=== PATIENT | male | born 1945 | race Caucasian/White ===

== ENCOUNTER 2016-11-15 05:00 | Inpatient (IN) | payer MEDICARE, OTHER ==
--- NOTE | 2016-11-12 12:51 | HP ---
PATIENT: VJ BUSTAMANTE MEDICAL RECORD: [id number] ACCOUNT: [id number] LOCATION:[facility] : 49 ADMISSION DATE: 11/15/16 HISTORY AND PHYSICAL EXAMINATION VJ Lucio (71yo, M) ID# [id number]. Date/Time11/10/2016 11:47ADWAN55/18/194[facility] Dept.NPP_[facility] ClinicProviderEDMAEVE DUCKWORTH MDInsuranceMed Primary: [employer] [employer] - MEDICARE-RAILROAD [employer] BOARD (MEDICARE) Insurance # : [id number] Employer Name : RETIRED Med Secondary: FOR LIFE ( - MEDICARE SUPPLEMENT) Insurance # : [id number] Employer Name : RETIRED Prescription: ESI1 - Member is eligible. 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 11/10/2016 11:09 amBMI:25 11/10/2016 11:08 amAllergies Reviewed Allergies CHANTIXMedications Reviewed Medications acetaminophen 300 mg-codeine 30 mg tpdcuv48/10/17 filledMEDCOAspir-81 81 MG DAILY11/03/16 enteredSarah Jonesbutorphanol tartrate 10 mg/mL nasal spray10/17/16 filledMEDCOcetirizine 10 mg /17/17 filledMEDCOdoxazosin 4 mg /10/17 filledMEDCOfluticasone 50 mcg/actuation nasal spray,atzamaivug43/05/17 filledMEDCOmetoprolol succinate ER 100 mg tablet,extended release 24 hr10/24/16 filledMEDCOpantoprazole 40 mg tablet,delayed sedokus42/05/17 filledMEDCOsimvastatin 80 mg ihbjtq50/17/17 filledMEDCOSuprep Bowel Prep Kit 17.5 gram-3.13 gram-1.6 gram oral wrjbdkub00/14/17 filledMEDCOToprol XL 50 mg tablet,extended wzbhinr18/05/17 filledMEDCOProblems Reviewed Problems Aneurysm of right iliac artery - Onset: 11/02/2016 Family History Reviewed Family History Father- Cerebrovascular accidentMother- Cerebrovascular accidentSocial History Reviewed Social History Cardiology Family history of heart disease?: Y Smoking Status: Current every day smoker Smoker (1 PPD) High blood pressure: Y Alcohol intake: None HISTORY AND PHYSICAL [id number] VJ BUSTAMANTE Surgical History Reviewed Surgical History Other - Left ankle Other - PTCA/stent Other - Hernia repair Past Medical History Reviewed Past Medical History Aneurysmn (specify): Y - right iliac artery High Blood Pressure: Y Hyperlipidemia: Y Documents for Discussion N/A Screening None recorded. HPI Peripheral Vascular Disease Reported by patient. Location: right groin and thigh Quality: aching Severity: interferes with normal activity; moderate Duration: started 4weeks ago; lasts hours Onset/Timing: intermittent; daily Context: during walking Alleviating Factors: rest Aggravating Factors: walking Associated Symptoms: no weakness; no numbness; no paresthesias; no skin discoloration; no fever abdominal aortic aneurysm and right iliac artery aneurysm ROS Patient reports fever but reports no night sweats, no significant weight gain, no significant weight loss, and no exercise intolerance; currently has a upper respiratory tract infection. He reports cough but reports no wheezing, no shortness of breath, and no coughing up blood; URI. He reports no dry eyes, no irritation, and no vision change. He reports no dif ficulty hearing and no ear pain. He reports no frequent nosebleeds and no nose/sinus problems. He reports no sore throat, no bleeding gums, no snoring, no dry mouth, no mouth ulcers, no oral abnormalities, and no teeth problems. He reports no jugular vein distension and no swollen glands. He reports no chest pain, no arm pain on exertion, no shortness of breath when walking, no shortness of breath when lying down, no palpitations, and no known heart murmur. He reports no abdominal pain, no vomiting, normal appetite, no diarrhea, not vomiting blood, no nausea, and no constipation. He reports no incontinence, no difficulty urinating, no hematuria, and no increased frequency. He reports no muscle aches, no muscle weakness, no arthralgias/joint pain, no back pa i n, and no swelling in the extremities. He reports no abnormal mole, no jaundice, and no rashes. He reports no loss of consciousness, no weakness, no numbness, no seizures, no dizziness, and no headaches. He reports no depression, no sleep disturbances, fe eling safe in relationship, and no alcohol abuse. He reports no fatigue. He reports no swollen glands and no bruising. He reports no runny nose, no sinus pressure, no itching, no hives, and no frequent sneezing. ROS as noted in the HPI Physical Exam Patient is a 71-year-old male. Constitutional: General Appearance well nourished and developed and HISTORY AND PHYSICAL [id number] DIANNAVJ healthy-appearing. Level of Distress NAD. Ambulation ambulating normally. Cardiovascular: Apical Impulse not displaced or no thrill. Heart Auscultation normal s1 and s2; no murmurs, rubs, or gallops; and RRR. Arterial Pulses no abdominal aorta bruits, femoral bruits, or popliteal bruits and 2+ bilateral, carotid 2+ bilateral, femoral 2+ bilateral, popliteal 2+ bilateral, and dorsalis pedis diminished (right). Edema no edema or varicosities. Lungs: Repiratory Effort no dyspnea. Percussion no dullness or flatness and hyperresonance . Auscultation no wheezing, rhonchi, or rales / crackles and breathing sounds normal, good air movement, and CTA except as noted. Abdomen: Bowl Sounds normal. Inspection and Palpation no tenderness, guarding, or rebound tenderness and soft, non-distended, and mass (pulsatile abdominal aortic aneurysm nontender). Liver non-tender and no hepatomegaly. Spleen non-tender and no splenomegaly. Hernia none palpable. Musculoskeletal System: Gait And Stance normal gait and stance. Digits and Nails normal nails and no cyanosis. Neurologic: Cranial Nerves grossly intact. Reflexes DTRs 2+ bilaterally throughout. Sensation grossly intact. Lymph Nodes: Lymph Nodes no cervical LAD, supraclavicular LAD, axillary LAD, or inguinal LAD. Eyes: Lids and Conjunctivae no discharge or pallor and non-injected. Pupils PERRLA. Cornea grossly intact. EOM EOMI. Lens clear. Sclerae non-icteric. Neck: Neck no masses, enlarged lymph nodes, or carotid bruits and supple and trachea midline. Thyroid no enlargement or nodules and non-tender. Skin: Inspection and Palpation no rash, lesions, ulcers, jaundice, or abnormal nevi. Assessment / Plan abdominal and right iliac artery aneurysm 1. Aneurysm of right iliac artery I72.3: Aneurysm of iliac artery Discussion Notes I have discussed his disease process with him in detail as well as the alternative methods of treatment. We discussed endovascular and open repair of his abdominal aortic aneurysm and iliac aneurysm including the expected benefits and risk. The risk of the operation include bleeding, infection, stroke,loss of limb, and .He and his understand all of the above and he wishes to proceed with claudia collado surgery. Return to Office Derek Duckworth MD for Surgery at [facility]_SURGERY SCHEDULE on 11/15/2016 at 07:30 AM to see Derek Duckworth MD at [facility] on or around 11/17/2016 HISTORY AND PHYSICAL [id number] VJ BUSTAMANTE EDWARD MD at 1251 CC: [id number] DICTATION DATE: 11/10/16 1100 ASSEMBLER SEAT: BHASKAR 11/10/16 150[id number] [place] [address]
[2016-11-14 09:51] LABS: BASOPHILS 0.5 % (0.0-2.0); HEMATOCRIT 38.1 % (42.0-54.0); HEMOGLOBIN 12.2 g/dL (13.5-17.5); IMMATURE GRANULOCYTES 0.2 % (0-5); LYMPHOCYTES 24.5 % (15-50); MCH 28.5 pg (26.0-34.0); MEAN PLATELET VOLUME 9.9 fL (7.4-10.4); MONOCYTES 7.2 % (2-11); NEUTROPHILS 63.6 % (40-80); PLATELET COUNT 144 10x3/uL (130-400); RBC 4.28 10x6/uL (4.20-6.10); RDW 15.7 % (11.5-14.5); WBC 5.5 10x3/uL (4.8-10.8)
[2016-11-14 10:17] LABS: ALBUMIN 4.1 g/dL (3.4-5.0); ALKALINE PHOSPHATASE 90 U/L (46-116); ALT (SGPT) 18 U/L (10-68); BILIRUBIN - TOTAL 0.38 mg/dL (0.2-1.3); CALC OSMOLALITY 279 mosm/kg (275-300); CALCIUM 8.7 mg/dL (8.5-10.1); CHLORIDE - SERUM 104 mmol/L (98-107); CREATININE - SERUM 0.7 mg/dL (0.6-1.3); GLUCOSE 104 mg/dL (74-106); POTASSIUM - SERUM 4.5 mmol/L (3.5-5.1); PROTEIN - SERUM 7.4 g/dL (6.4-8.2); SODIUM 140 mmol/L (136-145); UREA NITROGEN 14 mg/dL (7-18); eGFR NON AFRICAN AMERICAN > 90 mL/min (90-120)
[2016-11-14 10:18] LABS: APPEARANCE CLEAR (CLEAR); BILIRUBIN NEGATIVE (NEGATIVE); COLOR YELLOW (YELLOW); GLUCOSE NEGATIVE (NEGATIVE); KETONE NEGATIVE (NEGATIVE); LEUKOCYTE ESTERASE NEGATIVE (NEGATIVE); NITRITE NEGATIVE (NEGATIVE); PROTEIN NEGATIVE (NEGATIVE); SPECIFIC GRAVITY 1.005 (1.005-1.020); UROBILINOGEN NORMAL (NORMAL)
[2016-11-14 10:26] LABS: APTT 28.9 SECONDS (22.8-39.4); INR 0.97 (0.85-1.17); PROTIME 12.7 SECONDS (11.6-15.0)
[~2016-11-15] VITALS: Ht 177.8 cm; Wt 80.1 kg
[2016-11-15] VITALS (48 sets, daily range): BP systolic 111–164; BP diastolic 43–73; BMI 25.0
[~2016-11-15 05:00] MED LIST: ASPIRIN EC81 M1 PO; CARDURA4 MG PO; CENTRUM COMPLE1 EACH PO; COMBIVENT RESPIM4 GM INH; FISH OIL 1,0001 CA1 PO; FLUTICASONE PRO16 GM NASAL; ICAPS AREDS1 TAB.SA PO; PROTONIX40 MG PO; STADOL NASAL S2.5 ML NASAL; TOPROL XL100 MG PO; TYLENOL W/CODEI1 TAB PO; ZOCOR80 MG PO; ZYRTEC10 MG PO
--- NOTE | 2016-11-15 13:25 | NUR ---
REVIEWING LAB, FOUND PT POTASSIUM AT 3.1 THIS AM. ASKED WHITNEY YIP IF NEEDED TO BE REPLACED. WAS NOT TREATED IN O.R. ACCORDING TO O.R. STAFF. WHITNEY WILL ORDER NEW LAB TO SEE WHERE LEVELS ARE.
--- NOTE | 2016-11-15 14:35 | NUR ---
SPOKE WITH DR DUCKWORTH REGARDING PT POTASSIUM LEVEL COMING BACK 3.2. ASKED FOR 40MEQ TO BE GIVEN OVER 3 HOURS.
--- NOTE | 2016-11-15 17:30 | NUR ---
PULSES PALPABLE BILATERALLY IN DORSALS PEDIS AND POSTERIOR TIBIAL. PEDAL PULSES MARKED IN GREEN WHERE PALPABLE.
--- NOTE | 2016-11-15 17:43 | NUR ---
PT HEADACHE BACK. ICE PACK PROVIDED. STADOL SPRAY GIVEN. PT BP RISES WITH INCREASED PAIN. NITRO RUNNING AT 26 ML/HR (1.24MCG/KG/MIN). PT REPOSITIONED FOR COMFORT.
--- NOTE | 2016-11-15 17:58 | NUR ---
PT SBP CONTINUED TO CLIMB TO 170'S. INCREASED NITRO PER DIRECTIONS. MAXED AT 30 CHANGED TO CLEVIPREX. SPB NOW 140'S
--- NOTE | 2016-11-15 19:30 | NUR ---
REPORT REC'D AND CARE ASSUMED, REC'D PT AWAKE, ALERT, ORIENTED X 4, O2 @ 2 LITERS VIA NC, LIGHTS OFF IN ROOM FOR PT COMFORT, PT RESTLESS IN BED STATES " I HAVE A MIGRAINE CABRAL IT JUST WON'T QUIT", OFFERED PT ICE PACK, STATES "IT IS TO HEAVY", COLD WASHCLOTH PROVIDED, LDLSCL DRSG CDI WITH PLASMALYTE @ 100C/HR ZINACEF @ 11.4CC/HR, AND CLEVIPREX @ 36CC/HR, CM-SR @ 84, LEFT RADIAL DAVID WITH FLEXION BOARD IN USE, LINE LEVELED AND ZEROED WITH RETURN OF APPROPRIATE WAVEFORM, BILAT GROIN DRSGS CDI, NO BLEEDING OR HEMATOMA, BILAT PEDAL PULSES PALPABLE, HEELS BRIDGED, SR UP X 2, CALL LIGHT IN REACH.
--- NOTE | 2016-11-15 19:36 | NUR ---
HAVE BEEN TITRATING TO GET BP DOWN. HAVE HAD TROUBLE GETTING TO UNDER SBP OF 150. GAVE TORADOL FOR HEADACHE. TORADOL IN CONJUNCTION WITH STADOL FOR HEADACHE PAIN, PLUS CLEVIPREX ADJUSTMENT HAVE NOW BEEN ABLE TO GET SBP UNDER 140. PT CLEVIPREX CURRENTLY RUNNING AT 34ML/HR (17MG/HR). BP 136/54.
--- NOTE | 2016-11-15 20:35 | NUR ---
STADOL NASAL SPRAY PROVIDED FOR COMPLAINTS OF HEADACHE RATING "8" ON 0-10 PAIN SCALE, COOL CLOTH PROVIDED, PT DENIES FURTHER NEEDS.
--- NOTE | 2016-11-15 20:45 | NUR ---
EVENING MEDS GIVEN ORDERED.
--- NOTE | 2016-11-15 21:15 | NUR ---
BROTHER AT BROUGHT PT'S DENTURES, PLACED ON BS TABLE IN WHITE DENTURE CUP, PT DENIES NEEDS AT THIS TIME, REPORTS HEADACHE SOMEWHAT BETTER.
--- NOTE | 2016-11-15 23:15 | NUR ---
REASSESSMENT COMPLETED, PT STATES " MY HEAD IS STILL HURTING BAD", DISCUSSED PAIN MEDICATION OPTIONS WITH PT, IMITREX GIVEN PO AT THIS TIME, TITRATING CLEVIPREX TOLERATED, BILAT GROIN DRSGS REMAIN CDI NO BLEEDING OR HEMATOMA, PT REPOSITIONED OFF OF BACK TO LEFT SIDE SUPPORTED WITH PILLOWS.
--- NOTE | 2016-11-15 23:40 | NUR ---
LIGHT FROM HALLWAY BOTHERING PT'S EYES, PT REPOSITIONED ONTO RIGHT SIDE SUPPORTED WITH PILLOWS, BP STABLE, WILL CONT TO MONITOR FOR CHANGES.
[2016-11-16] VITALS (62 sets, daily range): BP systolic 107–160; BP diastolic 45–94; Ht 177.8 cm; Wt 80.1 kg
--- NOTE | 2016-11-16 01:00 | NUR ---
PT RESTING IN BED EYES CLOSED, NO DISTRESS NOTED, VSS, ATTEMPTING TO WEAN CLEVIPREX TOLERATED.
--- NOTE | 2016-11-16 02:20 | NUR ---
PT AWAKE REQUESTING PAIN MEDICATION FOR HEADACHE, REPORTS IMITREX DID HELP BUT LIKE STADOL AT THIS TIME, STADOL PROVIDED ON REQUEST, PT ASSISTED UP AND ONTO RIGHT SIDE PER REQUEST.
--- NOTE | 2016-11-16 03:50 | NUR ---
RADIOLOGY AT BS FOR AM CXR
--- NOTE | 2016-11-16 04:06 | NUR ---
PT COMPLAINING OF MIGRAINE HEADACHE, IMITREX GIVEN PO AT THIS TIME, PT REPOSITIONED UP IN BED AND ONTO SIDE SUPPORTED WITH PILLOWS, BILAT FEET REMAIN WARM TO TOUCH, PULSES PALPABLE.
--- NOTE | 2016-11-16 06:00 | NUR ---
AT BS, UPDATE GIVEN AND QUESTIONS ANSWERED, CONTINUING TO TITRATE CLEVIPREX FOR BP
[2016-11-16 06:11] LABS: HEMATOCRIT 30.9 % (42.0-54.0); MCH 28.2 pg (26.0-34.0); MCHC 32.4 g/dL (31.0-37.0); MEAN PLATELET VOLUME 9.7 fL (7.4-10.4); RBC 3.55 10x6/uL (4.20-6.10); RDW 15.9 % (11.5-14.5); WBC 6.1 10x3/uL (4.8-10.8)
[2016-11-16 06:26] LABS: CALC OSMOLALITY 282 mosm/kg (275-300); CALCIUM 7.5 mg/dL (8.5-10.1); CARBON DIOXIDE 26.7 mmol/L (21.0-32.0); CHLORIDE - SERUM 106 mmol/L (98-107); CREATININE - SERUM 0.7 mg/dL (0.6-1.3); GLUCOSE 118 mg/dL (74-106); POTASSIUM - SERUM 3.6 mmol/L (3.5-5.1); SODIUM 142 mmol/L (136-145); UREA NITROGEN 11 mg/dL (7-18); eGFR NON AFRICAN AMERICAN > 90 mL/min (90-120)
--- NOTE | 2016-11-16 07:45 | NUR ---
SHIFT ASSESSMENT COMPLETE. PT REPOSITIONED IN BED FOR BREAKFAST.
--- NOTE | 2016-11-16 08:30 | NUR ---
MORNING MEDICATIONS PROVIDED. PT C/O HEADACHE. STADOL GIVEN.
--- NOTE | 2016-11-16 09:00 | NUR ---
NO VISITORS FOR 9AM VISITATION
--- NOTE | 2016-11-16 11:25 | NUR ---
PT GIVEN STADOL AND IMITREX FOR HEADACHE. HAS BEEN UP IN CHAIR FOR PAST HOUR AFTER LEFT RADIAL ART LINE REMOVED (TIP INTACT) AND CALDERON CATHETER REMOVED (TIP INTACT). PT HAS URINATED ON HIS OWN SINCE CALDERON REMOVAL.
--- NOTE | 2016-11-16 12:02 | NUR ---
PT SITTING UP IN CHAIR AT BEDSIDE FOR LUNCH.
--- NOTE | 2016-11-16 12:58 | NUR ---
PT UP WALKING WITH PHYSICAL THERAPY
--- NOTE | 2016-11-16 14:15 | NUR ---
PT HAD URINARY ACCIDENT. PARTIAL BATH. ALL NEW LINENS.
--- NOTE | 2016-11-16 14:49 | NUR ---
PT SLEEPING AT THIS TIME NO DISTRESS NOTED. HAS COLD CLOTH ON HEAD FOR HEADACHE
--- NOTE | 2016-11-16 15:00 | NUR ---
FAMILY AT BEDSIDE FOR 3PM VISITATION. PT NOW AWAKE. C/O HEADACHE. WAS ASLEEP EARLIER WHEN I COULD GIVE HIM HIS MEDICATION.
--- NOTE | 2016-11-16 16:55 | NUR ---
PT SITTING UP TO SIDE OF BED FOR DINNER.
--- NOTE | 2016-11-16 16:59 | OP ---
PATIENT NAME: VJ BUSTAMANTE MEDICAL RECORD: [id number] :47 LOCATION:[facility] ADMISSION DATE:11/15/16 SURGEON: JACOB DUCKWORTH MD DATE OF OPERATION: 11/15/2016 SURGEON: Jacob Duckworth MD. ANESTHESIA: General endotracheal, Dr. Pappas. OPERATION PERFORMED: Endovascular stent repair of abdominal aortic aneurysm and large right common iliac artery aneurysm as well as embolization of the right hypogastric artery. FINDINGS OF THE OPERATION: 1. Open femoral and external iliac artery exposure bilaterally, 84861--90. 2. Catheter sheath placement into the aorta, nonselective bilaterally, 70147--45. 3. Endo AAA repair with modular bifurcated device, 1 docking limb 90-day total, Global ____. 4. Rad S&I Endo AAA repair, 76838--65. 5. Arterial embolization of right hypogastric artery, 30315. 6. Rad S&I Endo iliac artery embolization, 13090-96. PREOPERATIVE DIAGNOSIS: Large abdominal aortic and right common iliac artery aneurysm. POSTOPERATIVE DIAGNOSIS. Large abdominal aortic and right common iliac artery aneurysm. INDICATION FOR OPERATION: Large iliac and the aortic aneurysm. FINDINGS OF THE OPERATION: 1. Fluoro time was 20 minutes 42 seconds. Contrast 190 mL. 2. Aortogram demonstrated the large abdominal aortic aneurysm and large right common iliac artery aneurysm. 3. 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 4. Post-procedure aortogram demonstrates good flow. No type 1 endoleaks proximally or distally with good flow through the graft. ESTIMATED BLOOD LOSS: Less than 150 mL. DESCRIPTION OF PROCEDURE: After informed consent, adequate preoperative medication evaluation, the patient was brought to the operating room, placed on the table in the supine position. After induction of general endotracheal anesthesia and application of appropriate monitoring devices, the chest, neck, abdomen and both groin were prepped and draped in a sterile field, utilizing Betadine scrub, alcohol, and Betadine solution. A Betadine-impregnated drape was also used. Oblique incisions were made above the inguinal ligaments bilaterally and dissection carried down the fascia. The inguinal ligaments were elevated. The common femoral and distal external iliac arteries were surrounded proximally and distally as well as the branches and encircled with vessel loops. The patient was given a calculated dose of heparin. Bilateral micropuncture techniques were made and 4-Kyrgyz sheath placed and exchanged for a 9-Kyrgyz OPERATIVE REPORT [id number] VJ BUSTAMANTE sheaths under fluoroscopic examination. Utilizing a Glidewire and a steerable catheter the bifurcation was defined and a Glidewire was placed into the external iliac artery. A straight Glidewire was then placed in the distal aneurysm sac. The 2 branches of the hypogastric were identified and wires were placed. An exchange made for the catheter and a 0.18 catheter was placed into the upper branch of the hypogastric and cords were used to totally closed the vessel. The catheter was then manipulated into the more inferior branch and to ____, helix course were placed with a good result. An aortogram was then performed and measurements made. The ipsilateral limb was left, an exchange for a stiff guidewire was performed on the left and the main body placed at the renal arteries. The main body was then deployed as well as the upper fixation. The contralateral limb was then cannulated from the right and exchange was made for a stiff wire. After measurements were made the contralateral limb was placed distal to the embolization of the hypogastric. Reliant balloons were used to inflate the main body and limbs and aortogram was performed demonstrated a good result with seals superiorly and inferiorly. The catheters, wires and sheaths were removed and the femoral arteries repaired with 2 layers of running 6-0 Prolene suture. All maneuvers to remove trapped air were performed. The arteries were secured. The clamps removed with excellent flow through both femoral arteries. The patient then given a calculated dose of protamine to reverse the heparin. Hemostasis was achieved. The wounds were irrigated with copious amounts of antibiotic solution and normal saline. There was no active bleeding. Instrument count and sponge counts were correct times 2. Wounds closed in layers utilizing 2-0 Vicryl on deep subcutaneous tissue, 3-0 Vicryl on superficial subcutaneous tissue and 5-0 subcuticular Monocryl on the skin. Sterile dressings were applied. The patient tolerated the procedure well and was transferred to the ICU in satisfactory condition. TRANSINT:[id number] Voice Confirmation ID: [id number] DOCUMENT ID: [id number] JACOB DUCKWORTH MD at 1659 CC: [id number] DICTATION DATE: 11/15/16 1145 SWEAT BAND SEPARATOR: 11/15/162009 ADM IN [facility] [address] [id number]
--- NOTE | 2016-11-16 18:36 | NUR ---
PT STILL COMPLAINING OF HEADACHE AND BEING "HOT". TEMPERATURE CHECKED. 99.7 ORAL. GIVEN ICE PACK PATIENT DAUGHTER REQUESTED. ALONG WITH IMITREX, GAVE TYLENOL 3 SINCE NOT QUITE TIME FOR STADOL.
--- NOTE | 2016-11-16 19:30 | NUR ---
REPORT RECVD. CARE ASSUMED. INITIAL ASSMNT COMPLETED. SEE FLOWSHEET FOR ALL FINDINGS. RESTING IN DIM ROOM WITH EYES CLOSED. RESP UNLABORED. LUNGS CTA, DIM IN BASES. SPO2 99% ON O2 AT 2 LPM NC. BRADYCARDIC ON THE MONITOR. NSR. PULSES PALP. TEDS/SCDS ON. AFEBRILE. ABD SOFT, BSA X4. BILATERAL GROIN INCISIONAL DRESSINGS CDI. REPORTS CONSTANT HEADACHE. 4/10 AT THE MOMENT. VOIDING TO URINAL. REPOSITIONS SELF. HOB UP. C/L IN REACH. CONT CURRENT POC.
--- NOTE | 2016-11-16 21:30 | NUR ---
HS MEDS GIVEN. PRN STADOL AND TORADOL PROVIDED GOT HEADACHE. VSS. REPOSITIONED SELF FOR COMFORT. HOB UP. C/L IN REACH. CONT CURRENT POC.
--- NOTE | 2016-11-16 23:30 | NUR ---
REASSESSMENT COMPLETED. SEE FLOWSHEET FOR ALL FINDINGS. RESTING WITH EYES CLOSED. RESP UNLABORED. LUNGS CTA, DIM IN BASES. SPO2 99% ON O2 AT 2 LPM NC. BRADYCARDIC ON THE MONITOR. NSR. PULSES PALP. TEDS/SCDS ON. AFEBRILE. ABD SOFT, BSA X4. BILATERAL GROIN INCISIONAL DRESSINGS CDI. REPORTS CONSTANT HEADACHE. / AT THIS TIME. VOIDING TO URINAL. REPOSITIONS SELF. HOB UP. C/L IN REACH. CONT CURRENT POC.
[2016-11-17] VITALS (9 sets, daily range): BP systolic 92–156; BP diastolic 47–66
--- NOTE | 2016-11-17 01:10 | NUR ---
RESTING WITH EYES CLOSED. NO C/O OR NEEDS VOICED. VSS. HOB UP. C/L IN REACH. CONT TO MONITOR.
--- NOTE | 2016-11-17 05:15 | NUR ---
REQUESTED PRN STADOL FOR CONSTANT HEADACHE. REPORTS RESTING BETTER TONIGHT. VSS. HOB UP. C/L IN REACH. CONT CURRENT POC.
--- NOTE | 2016-11-17 09:16 | NUR ---
AT BEDSIDE FOR 9AM VISITATION. PHYSICAL THERAPIST SYED IN ROOM TO WALK PATIENT. ATE 100% OF BREAKFAST THIS MORNING AND DRANK ALL OF HIS ORANGE JUICE. I LET PATIENT KNOW WE WOULD BE MORE AGGRESSIVE WITH HIS PHYSICAL THERAPY/WALKING TODAY.
--- NOTE | 2016-11-17 09:22 | NUR ---
PT WALKED 300FT WITH PHYSICAL THERAPIST. NO DISTRESS NOTED. MORE ALERT AND RECEPTIVE TO ACTIVITY. SATS AT 99% ON 2L AFTER WALKING AND DOING INCENTIVE SPIROMETRY. (1250 X10). PLACED ON ROOM AIR. SATS 95-97%. PT AND EDUCATED ON BEING UP IN CHAIR INSTEAD OF BEING IN BED. PT IS IN CHAIR AT THIS TIME.
--- NOTE | 2016-11-17 10:42 | NUR ---
Is the patient Alert and Oriented? Yes 0 * How many steps to enter\exit or inside your home? 5 0 * PCP DR. LECHUGA 0 * Pharmacy [facility] 0 * Preadmission Environment Home with Family 0 * ADLs Independent 0 * Equipment None 0 * List name and contact numbers for known caregivers / representatives who currently or will assist patient after discharge: SPOUSE: MATEUSZ [phone] 0 * Community resources currently utilized None 0 * Additional services required to return to the preadmission environment? No 0 * Can the patient safely return to the preadmission environment? Yes 0 * Has this patient been hospitalized within the prior 30 days at any hospital? No PATIENT IS AWAKE AND ALERT. HE STATES HE WAS INDEPENDENT IN ALL ADL'S PRIOR TO COMING TO THE HOSPITAL. HE LIVES AT HOME WITH HIS , MATEUSZ. SHE WILL BE AVAILABLE TO DRIVE HIM HOME AT DISCHARGE. PATIENT'S PCP IS DR. LECHUGA. HE GETS HIS MEDS FROM [facility]. HE DENIES USE OF ANY DME AND DENIES EVER HAVING HOME HEALTH. PATIENT STATES THERE ARE 5 STEPS TO ENTER HIS HOME. NO DISCHARGE NEEDS AT THIS TIME IDENTIFIED.
--- NOTE | 2016-11-17 13:02 | NUR ---
CENTRAL LINE REMOVED, TIP INTACT. DISCHARGE TEACHING PROVIDED TO . REFUSED TO PARTICIPATE. SHE IS ANGRY ABOUT BEING REQUIRED TO FOLLOW VISITATION POLICY DURING THE HOSPITAL STAY. SHE IS BEING VERY RUDE. AFTER TEACHING WAS COMPLETED I ASKED THE PATIENT IF HE WANTED ME TO HELP HIM GET DRESSED OR IF HE WOULD LIKE HIS TO HELP. HE DECLINED MY HELP SAYING HE WOULD DO IT. I WAS WALKING AWAY FROM THE PATIENT, THE YELLED OUT AT ME "AREN'T YOU GOING TO GET HIM DRESSED!?" I TOLD HER HE REFUSED MY HELP SAYING HE COULD DO IT. TOLD THEM I WOULD GIVE HIM TIME TO GET DRESSED AND WILL GET A WHEELCHAIR.
--- NOTE | 2016-11-17 13:26 | NUR ---
PT ESCORTED TO VEHICLE VIA WHEELCHAIR. PRIOR TO LEAVING ROOM (AFTER HAD LEFT TO GET CAR) PATIENT APOLOGIZED FOR BEHAVIOR AND JOKINGLY SAID HE WOULD RATHER STAY HERE. LET HIM KNOW IT WAS A PLEASURE TO TAKE CARE OF HIM AND WISHED HIM CONTINUED RECOVERY.
== END 2016-11-17 13:29 | disposition home or self-care (01) | DRG 269 ==
LOC: D.SDCHOLD 05:00 → D.CVICU 05:00 → D.SDCHOLD 07:30 → D.CVICU 11:24
PROVIDERS: ADMIT Internal Medicine Cardiovascular Disease
PROC: 04VC3DZ Restriction of Right Common Iliac Artery with Intraluminal Device, Percutaneous Approach (ICD-10-PCS; 2016-11-15)
PROC: B41D1ZZ Fluoroscopy of Aorta and Bilateral Lower Extremity Arteries using Low Osmolar Contrast (ICD-10-PCS; 2016-11-15)
PROC: 04V03DZ Restriction of Abdominal Aorta with Intraluminal Device, Percutaneous Approach (ICD-10-PCS; principal; 2016-11-15 07:30)
DX: I71.4 Abdominal aortic aneurysm, without rupture (principal); I70.92 Chronic total occlusion of artery of the extremities; I72.3 Aneurysm of iliac artery; I10 Essential (primary) hypertension; E78.5 Hyperlipidemia, unspecified; G43.909 Migraine, unspecified, not intractable, without status migrainosus; F17.200 Nicotine dependence, unspecified, uncomplicated

== ENCOUNTER 2016-12-16 12:18 | Emergency (ER) | payer MEDICARE, OTHER ==
[2016-11-16 09:48] VITALS: BMI 24.9
== END 2016-12-16 15:33 | disposition home or self-care (01) ==
LOC: D.ER 12:18
DX: R20.9 Unspecified disturbances of skin sensation (principal); J44.9 Chronic obstructive pulmonary disease, unspecified; I25.10 Atherosclerotic heart disease of native coronary artery without angina pectoris; E78.5 Hyperlipidemia, unspecified; K21.9 Gastro-esophageal reflux disease without esophagitis

== ENCOUNTER 2016-12-19 17:27 | Inpatient (IN) | payer MEDICARE, OTHER ==
[~2016-12-19] VITALS: Ht 177.8 cm; Wt 70.9 kg
--- NOTE | 2016-12-19 17:15 | NUR ---
RECEIVED PATINT TO ROOM 2217 AWAKE AND ALERT ACCOMPANIED BY EMS. HEPARIN GTT INFUSING AT 10CC NH HOUR. INITIATED BY [facility]. HE IS ORIENTED AND WITHOUT DISTRESS. HIS RIGHT LOWER LEG IS COOL TO THE TOUCH TO JUST BELOW THE KNEE. THE CAPILLARY BEDS TO THE R TOES DO NOT EMILIANO. I CANNOT FEEL PEDAL PULSE ON THE RIGHT OR LEFT FOOT. LEFT FOOT IS COOL TO TOUCH UP TO THE MID CALF. DR. DUCKWORTH ON THE UNIT TO ASSESS PATIENT. VSS. LUNGS CLEAR IN ALL LOBES. HR IS BRADYCARDIC, AUSCULTATION DISTANT. HE RATES HIS PAIN AN 8 IN THEAT RIGHT LEG.
[2016-12-19 17:32] VITALS: BP 171/77; BMI 23.2
[2016-12-19 18:03] LABS: HEMATOCRIT 33.4 % (42.0-54.0); HEMOGLOBIN 10.6 g/dL (13.5-17.5); MCH 27.4 pg (26.0-34.0); MCHC 31.7 g/dL (31.0-37.0); MCV 86.3 fL (80.0-100.0); MEAN PLATELET VOLUME 9.9 fL (7.4-10.4); RBC 3.87 10x6/uL (4.20-6.10); RDW 15.2 % (11.5-14.5); WBC 6.5 10x3/uL (4.8-10.8)
[2016-12-19 18:15] LABS: INR 1.07 (0.85-1.17); PROTIME 13.8 SECONDS (11.6-15.0)
--- NOTE | 2016-12-19 18:16 | NUR ---
PATIENT OFF THE UNIT FOR CHEST XRAY. HEPARIN GTT ACCOMPANIED HIM
[2016-12-19 18:28] LABS: APTT 192.4 SECONDS (22.8-39.4)
--- NOTE | 2016-12-19 18:36 | NUR ---
HEPARIN PLACED ON DELAY FOR 60 MINUTES. HE KNOWS THAT WE NEEDS A URINE SAMPLE, COLLECTION CUP GIVEN.
[2016-12-19 18:38] LABS: ALKALINE PHOSPHATASE 126 U/L (46-116); BILIRUBIN - TOTAL 0.22 mg/dL (0.2-1.3); CALC OSMOLALITY 277 mosm/kg (275-300); CALCIUM 8.7 mg/dL (8.5-10.1); CARBON DIOXIDE 34.6 mmol/L (21.0-32.0); CHLORIDE - SERUM 99 mmol/L (98-107); CREATININE - SERUM 0.7 mg/dL (0.6-1.3); GLUCOSE 95 mg/dL (74-106); POTASSIUM - SERUM 3.9 mmol/L (3.5-5.1); PROTEIN - SERUM 6.7 g/dL (6.4-8.2); SODIUM 140 mmol/L (136-145); UREA NITROGEN 9 mg/dL (7-18); eGFR NON AFRICAN AMERICAN > 90 mL/min (90-120)
[2016-12-19 18:40] LABS: ALT (SGPT) 6 U/L (10-68)
[2016-12-19 20:00] VITALS: BP 151/76
--- NOTE | 2016-12-19 20:00 | NUR ---
ASSESSMENT PER FLOWSHEET. IV PATENT LEFT HAND RESUMED HEPARIN GTT AT 7CC'S/HR PER S/S. SITE CLEAR. ALERT/ORIENTED X3. BOTH LOWER EXTREMITIES COOK TO TOUCH RT>THAN LT. COLR PALE FAINT PULSES NOTED.
--- NOTE | 2016-12-19 20:33 | NUR ---
C/O PAIN IN LOWER EXTREMITES. RATES PAIN LEVEL 6-7. STADOL NASAL SPRAY USED FOR PAIN CONTROL.
--- NOTE | 2016-12-19 21:45 | NUR ---
MEDS GIVEN PER OCT. SR UP X2 CALL LIGHT WITHIN REACH.
[2016-12-19 23:24] LABS: APPEARANCE CLEAR (CLEAR); BILIRUBIN NEGATIVE (NEGATIVE); COLOR YELLOW (YELLOW); GLUCOSE NEGATIVE (NEGATIVE); KETONE NEGATIVE (NEGATIVE); LEUKOCYTE ESTERASE NEGATIVE (NEGATIVE); NITRITE NEGATIVE (NEGATIVE); PROTEIN NEGATIVE (NEGATIVE); UROBILINOGEN NORMAL (NORMAL)
[2016-12-20] VITALS (52 sets, daily range): BP systolic 116–163; BP diastolic 44–88
--- NOTE | 2016-12-20 | NUR ---
RESTING QUIETLY DENIES NEEDS AT THIS TIME.
--- NOTE | 2016-12-20 01:15 | NUR ---
REST OF SURGICAL PERMITS SIGNED WITNESSED AND PLACED ON CHART. NOTIFIED SHAAN RN STRIP CUTTING MACHINE OPERATOR NEED FOR OLD CHART.
--- NOTE | 2016-12-20 01:16 | NUR ---
C/O PAIN IN LEGS AND FEET RATES PAIN LEVEL #8. STADOL NASAL SPRAY USED FOR PAIN CONTROL. BOTH GROIN AREA AND RT LEG SHAVED AND PREP COMPLETE BED BATH GIVEN PER MISSY MELÉNDEZA AND KEVIN STRANGE. WEIGHT AND HEIGHT DONE. PLACED RESULTS ONFFRONT OF CHART.
--- NOTE | 2016-12-20 03:45 | NUR ---
RESTING QUIETLY RESPIRATIONS WITH EASE AND UNLABORED.
--- NOTE | 2016-12-20 03:47 | NUR ---
RESTING QUIETLY AT THIS TIME REMAINS NPO FOR SURGERY.
--- NOTE | 2016-12-20 03:58 | NUR ---
VS TAKEN IN BOTH ARMS AND RECORDED ON FRONT OF CHART.AND IN GRAPHIC SHEET.
--- NOTE | 2016-12-20 04:00 | NUR ---
HEPARIN GTT TURNED OFF ORDERED PER DR. DUCKWORTH. PT VOIDED IN URINAL. PT READY FOR SURGERY.
--- NOTE | 2016-12-20 05:30 | NUR ---
DR. DUCKWORTH'S CARBONATING STONE CLEANER HERE MARKED PULSES WITH DOPPLER. NITRO OINTMENT APPLIED TO BOTH RADIAL ARTERIES.
--- NOTE | 2016-12-20 05:50 | NUR ---
DR. AGUILAR ANESTHESIST TO EVALUATE PATIENT. OK TO PRE OP PATIENT NOTIFIED SHAAN YIP BROOM BUILDER.
--- NOTE | 2016-12-20 06:15 | NUR ---
TO SURGERY PER CART PREOP MEDS GIVEN IV OF NS AT [facility] UNABLE TO DO PREOP CHECKLIST COMPUTER STATES CASE NUMBER NOT ON FILE.NOTIFIED ELBA IN SURGERY.
--- NOTE | 2016-12-20 07:10 | NUR ---
REPORT RECEIVED FROM FINISHER OPERATOR NURSE.
--- NOTE | 2016-12-20 07:20 | NUR ---
IN SURGERY AT THIS TIME. WILL MONITOR PT WHEN HE RETURNS TO THE ROOM.
--- NOTE | 2016-12-20 09:00 | NUR ---
STILL IN PROCEDURE AT THIS TIME.
--- NOTE | 2016-12-20 12:07 | NUR ---
FAMILY AT BEDSIDE, UPDATED BY DR DUCKWORTH.
[2016-12-20 12:14] LABS: HEMATOCRIT 31.4 % (42.0-54.0); HEMOGLOBIN 10.2 g/dL (13.5-17.5); MCH 27.7 pg (26.0-34.0); MCHC 32.5 g/dL (31.0-37.0); MCV 85.3 fL (80.0-100.0); MEAN PLATELET VOLUME 9.9 fL (7.4-10.4); RBC 3.68 10x6/uL (4.20-6.10); RDW 14.9 % (11.5-14.5); WBC 7.2 10x3/uL (4.8-10.8)
[2016-12-20 12:27] LABS: INR 1.12 (0.85-1.17); PROTIME 14.2 SECONDS (11.6-15.0)
[2016-12-20 12:31] LABS: APTT 70.1 SECONDS (22.8-39.4)
--- NOTE | 2016-12-20 15:00 | NUR ---
REASSESSMENT VIA FLOWSHEET, SEE FOR DETAILS.
--- NOTE | 2016-12-20 16:15 | NUR ---
PT STATES, "MY LEG IS MUCH BETTER." APPEARS VISIBLY MORE COMFORTABLE THAN PREVIOUS ASSESSMENTS.
[2016-12-20 17:24] LABS: HEMATOCRIT 30.4 % (42.0-54.0); HEMOGLOBIN 9.7 g/dL (13.5-17.5); MCH 27.1 pg (26.0-34.0); MCHC 31.9 g/dL (31.0-37.0); MCV 84.9 fL (80.0-100.0); MEAN PLATELET VOLUME 9.3 fL (7.4-10.4); RBC 3.58 10x6/uL (4.20-6.10); RDW 14.8 % (11.5-14.5)
[2016-12-20 17:29] LABS: PROTIME 16.9 SECONDS (11.6-15.0)
[2016-12-20 17:30] LABS: APTT 73.7 SECONDS (22.8-39.4)
[2016-12-20 17:43] LABS: INR 1.38 (0.85-1.17); WBC 14.2 10x3/uL (4.8-10.8)
--- NOTE | 2016-12-20 18:15 | NUR ---
SPOKE WITH DR DUCKWORTH VIA PHONE, PT STATUS REPORTED AND NEW ORDERS RECEIVED. TPA TO RUN AT 6ML/HR UNTIL 0300 THEN DECREASE TO 3ML/HR.
--- NOTE | 2016-12-20 19:20 | NUR ---
REC'D PT RESTING IN BED ON ROOM AIR, AWAKE, ALERT, ORIENTED X 4, LEFT RADIAL DAVID WITH FLEXION BOARD IN USE, LEVELED AND ZEROED WITH RETURN OF APPROPRIATE WAVEFORM, LDLSCL DRSG CDI WITH D51/2NS @ 100CC/HR, CLEVIPREX @ 13.5CC/HR, HEPARIN @ 700 UNITS/HR AND DEMEROL @ 10MG Q10MIN WITH 240MG Q4HR LOCKOUT, RIGHT GROIN SHEATH WITH NS WITH HEPARIN @ 20CC/HR AND TPA @ 6CC/HR, DRSG TO UPPER PUNCTURE SITE WITH SM AMOUNT OF BLEEDING, DRSG CDI, RIGHT LOWER LEG WARM TO TOUCH TO ANKLE, FOOT AND TOES COOL TO TOUCH, PULSE BY DOPPLER, LEFT LOWER EXT COOL TO TOUCH AND PULSES BY DOPPLER, CRITICORE CALDERON PATENT DRAINING CLEAR YELLOW URINE, RIGHT HEEL BRIDGED, PT DENIES NEEDS AT THIS TIME, SR UP X 2, BED IN LOW POSITION , CALL LIGHT IN REACH.
--- NOTE | 2016-12-20 19:30 | NUR ---
O2 SAT DECREASED TO 83% DURING CONVERSATION, O2 REAPPLIED @ 4LITERS
--- NOTE | 2016-12-20 21:00 | NUR ---
EVENING MEDS GIVEN, PT REPORTS PAIN NOT BAD STATES "IT HAS DULLED DOWN", REMINDED PT TO USE DEMEROL GRUBBER NEEDED, VERBALIZES UNDERSTANDING.
--- NOTE | 2016-12-20 21:15 | NUR ---
FAMILY AT VISITING WITH PATIENT
--- NOTE | 2016-12-20 23:00 | NUR ---
TIMED PTT DRAW OBTAINED FROM DAVID AND SENT TO LAB, REASSESSMENT COMPLETED, PT RESTLESS IN BED, DENIES PAIN A THIS TIME, CALL LIGHT IN REACH
[2016-12-20 23:39] LABS: HEMATOCRIT 28.6 % (42.0-54.0); HEMOGLOBIN 9.1 g/dL (13.5-17.5); MCH 27.1 pg (26.0-34.0); MCHC 31.8 g/dL (31.0-37.0); MCV 85.1 fL (80.0-100.0); MEAN PLATELET VOLUME 9.5 fL (7.4-10.4); RBC 3.36 10x6/uL (4.20-6.10); WBC 11.9 10x3/uL (4.8-10.8)
[2016-12-20 23:46] LABS: INR 1.23 (0.85-1.17); PROTIME 15.4 SECONDS (11.6-15.0)
[2016-12-20 23:47] LABS: APTT 50.1 SECONDS (22.8-39.4)
[2016-12-21] VITALS (61 sets, daily range): BP systolic 114–149; BP diastolic 39–61; Ht 177.8 cm; Wt 70.9 kg
--- NOTE | 2016-12-21 00:45 | NUR ---
PT REMAINS AWAKE, STATES " I USUALLY HAVE TO TAKE SOMETHING AT HOME TO HELP ME SLEEP, 0.5 MG ATIVAN GIVEN SLOW IVP, WEANING CLEVIPREX TOLERATED.
--- NOTE | 2016-12-21 01:30 | NUR ---
PT ATTEMPTING TO SIT UP, STATES " I WAS GONNA CALL AND SEE WHAT TIME THEY WANTED ME OVER THERE", PT ORIENTED TO PLACE, REORIENTED TO SITUATION, RIGHT GROIN SITE WITH HEMATOMA NOTED, GRADUALLY HAS EXPANDED DURING SHIFT, RIGHT LEG WARM TO TOP OF FOOT.
--- NOTE | 2016-12-21 03:30 | NUR ---
CHLORAHEXIDINE BATH PROVIDED, LDLSCL DRSG CHANGED CLOT NOTED AT INSERTION SITE, CLOT LEFT IN PLACE, SITE CLEANED WITH CHLORAPREP, BIOPATCH AND 4X4 APPLIED, RIGHT GROIN REMAINS EDEMATOUS, LEG WARM TO TOP OF FOOT, PP BY DOPPLER, PT REMAINS CONFUSED, REORIENTED AT THIS TIME, COMPLETED LINEN CHANGE PROVIDED, PT REPOSITONED UP IN BED FOR COMFORT, SR UP X 4, CALL LIGHT IN REACH, WILL MONITOR CLOSELY FOR CHANGES.
--- NOTE | 2016-12-21 04:00 | NUR ---
PT UNCOMFORTABLE IN BED, ASSISTED TO LOG ROLL ONTO LEFT SIDE SUPPORTED WITH PILLOW, VSS, TITRATING CLEVIPREX TOLERATED.
--- NOTE | 2016-12-21 05:30 | NUR ---
TIMED LAB DRAWN FROM DAVID AND SENT TO LAB, PT LEANING UP IN BED FOR PHONE WANTING TO CALL , REMINDED PT HE MUST STAY FLAT DUE TO SHEATH IN RIGHT GROIN, PHONE PLACED IN PT'S REACH.
[2016-12-21 05:35] LABS: HEMATOCRIT 26.6 % (42.0-54.0); HEMOGLOBIN 8.6 g/dL (13.5-17.5); MCH 27.2 pg (26.0-34.0); MCHC 32.3 g/dL (31.0-37.0); MCV 84.2 fL (80.0-100.0); MEAN PLATELET VOLUME 9.4 fL (7.4-10.4); RBC 3.16 10x6/uL (4.20-6.10); RDW 14.8 % (11.5-14.5)
[2016-12-21 05:40] LABS: WBC 8.5 10x3/uL (4.8-10.8)
[2016-12-21 05:57] LABS: INR 1.15 (0.85-1.17); PROTIME 14.6 SECONDS (11.6-15.0)
[2016-12-21 05:58] LABS: APTT 49.7 SECONDS (22.8-39.4)
--- NOTE | 2016-12-21 06:00 | NUR ---
AT , UPDATE GIVEN AND QUESTIONS ANSWERED.
--- NOTE | 2016-12-21 06:25 | NUR ---
HEPARIN GTT INCREASED TO 900 UNITS/HR
[2016-12-21 06:27] LABS: ALBUMIN 2.4 g/dL (3.4-5.0); ALKALINE PHOSPHATASE 107 U/L (46-116); BILIRUBIN - TOTAL 0.27 mg/dL (0.2-1.3); CALC OSMOLALITY 271 mosm/kg (275-300); CALCIUM 7.5 mg/dL (8.5-10.1); CARBON DIOXIDE 28.1 mmol/L (21.0-32.0); CHLORIDE - SERUM 101 mmol/L (98-107); GLUCOSE 135 mg/dL (74-106); PROTEIN - SERUM 5.8 g/dL (6.4-8.2); SODIUM 136 mmol/L (136-145); UREA NITROGEN 7 mg/dL (7-18)
[2016-12-21 06:31] LABS: ALT (SGPT) 17 U/L (10-68); CREATININE - SERUM 0.5 mg/dL (0.6-1.3); POTASSIUM - SERUM 3.1 mmol/L (3.5-5.1); eGFR NON AFRICAN AMERICAN > 90 mL/min (90-120)
--- NOTE | 2016-12-21 07:30 | NUR ---
SHIFT ASSESSMENT VIA FLOWSHEET, SEE FOR DETAILS.
--- NOTE | 2016-12-21 08:31 | NUR ---
DR DUCKWORTH HERE TO SEE PT.
--- NOTE | 2016-12-21 10:20 | NUR ---
PT REPOSITIONED. PT RESTLESS, REMINDED OF THE IMPORTANCE OF NOT PULLING LINES.
--- NOTE | 2016-12-21 11:20 | NUR ---
PREOP MEDS GIVEN PER ORDER.
[2016-12-21 11:43] LABS: HEMATOCRIT 24.3 % (42.0-54.0); HEMOGLOBIN 7.9 g/dL (13.5-17.5); MCH 27.4 pg (26.0-34.0); MCHC 32.5 g/dL (31.0-37.0); MCV 84.4 fL (80.0-100.0); MEAN PLATELET VOLUME 9.6 fL (7.4-10.4); RBC 2.88 10x6/uL (4.20-6.10); WBC 8.1 10x3/uL (4.8-10.8)
[2016-12-21 12:24] LABS: INR 1.14 (0.85-1.17); PROTIME 14.5 SECONDS (11.6-15.0)
--- NOTE | 2016-12-21 12:30 | NUR ---
PT OFF UNIT TO OR VIA BED.
--- NOTE | 2016-12-21 14:30 | NUR ---
PT REMAINS IN OR AT THIS TIME.
--- NOTE | 2016-12-21 15:15 | NUR ---
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 PATIENT STATED SHE WILL DRIVE PATIENT HOME AT DISCHARGE. THERE IS A RAMP TO ENTER HOME AND NO STAIRS ONCE INSIDE. PATIENT IS INDEPENDENT WITH HIS CARE AND HAS A WALKER AT HOME. PATIENTS PCP IS DR. LECHUGA AND USES [facility]. DOES NOT THINK PATIENT WILL NEED HOME HEALTH AT DISCHARGE. CM WILL CONTINUE TO FOLLOW PATIENT WITH D/C NEEDS AND PLANS. PCP DR. LECHUGA [facility]- [phone] MATEUSZ BUSTAMANTE () [phone] Instructional Systems Specialist: Rehana Paredes How many steps to enter\exit or inside your home? RAMP 0 * PCP DR. LECHUGA 0 * Pharmacy [facility] 0 * Preadmission Environment Home with Family 0 * ADLs Independent 0 * Equipment Walker 0 * List name and contact numbers for known caregivers / representatives who currently or will assist patient after discharge: MATEUSZ BUSTAMANTE () [phone] * Community resources currently utilized None 0 * Additional services required to return to the preadmission environment? Yes 0 * Can the patient safely return to the preadmission environment? Yes 0 * Has this patient been hospitalized within the prior 30 days at any hospital? No 0 Grand Total: 0
--- NOTE | 2016-12-21 17:00 | NUR ---
PT RETURNED TO ROOM CV02 VIA BED FROM OR. RIGHT GROIN INCISION COVERED WITH MEPILEX, RICKY DRAIN IN PLACE DISTAL TO PRIOR SHEATH SITE. PEDAL PULSES VIA DOPPLER.
--- NOTE | 2016-12-21 17:33 | NUR ---
FAMILY AT BEDSIDE, UPDATED BY DR DUCKWORTH.
[2016-12-21 18:50] LABS: HEMATOCRIT 32.1 % (42.0-54.0); HEMOGLOBIN 10.6 g/dL (13.5-17.5)
--- NOTE | 2016-12-21 19:25 | NUR ---
REPORT REC'D AND CARE ASSUMED, REC'D PT ON O2 @ 4LITERS VIA NC, PT AWAKE AND ALERT, ORIENTED X 3, ASKING ABOUT PROCEDURE, DID NOT REALIZE PROCEDURE WAS COMPLETE, LDLSCL DRSG CDI WITH PLASMALYTE @ 100CC/HR, ZINACEF @ 11.4CC/HR, CLEVIPREX @ 15MG/HR OR 30CC/HR, AND DEMEROL 10MG Q10MIN WITH 240MG Q4HR LOCKOUT, RIGHT GROIN SWOLLEN DRSG CDI, BRUISING NOTED, RIGHT LEG WARM DOWN TO FOOT, PULSE BY DOPPLER, LEFT RADIAL DAVID WITH FLEXION BOARD IN USE LEVELED AND ZEROED WITH RETURN OF APPROPRIATE WAVEFORM, RIGHT LEG RICKY DRAIN COMPRESSED WITH SM AMOUNT BLOODY DRAINAGE, CRITICORE CALDERON PATENT DRAINING CLEAR YELLOW URINE, SR UP X 2, BED IN LOW POSITION, CALL LIGHT IN REACH.
--- NOTE | 2016-12-21 19:55 | NUR ---
POTASSIUM CRITICAL ON ABG, H AND H DECREASED WILL DRAW SERUM TO VERIFY
[2016-12-21 20:27] LABS: HEMATOCRIT 31.1 % (42.0-54.0); HEMOGLOBIN 10.5 g/dL (13.5-17.5)
--- NOTE | 2016-12-21 20:35 | NUR ---
EVENING MEDS GIVEN WITH SIPS OF WATER, PT STATES "THERE MUST BE A SCIENCE FAIR BECAUSE ALL THAT STUFF IS MOVING ON THE CEILING", ATTEMPTED TO REORIENT AT THIS TIME, PT REMAINS FIDGETY IN ROOM, PULLING AND PLAYING WITH EQUIPMENT THOUGH INSTRUCTED NOT TO.
--- NOTE | 2016-12-21 21:00 | NUR ---
NO VISITORS IN AT THIS TIME
--- NOTE | 2016-12-21 21:59 | NUR ---
PT RESTLESS IN BED, STATES " I JUST CAN'T GET COMFORTABLE" REPORTS CHRONIC BACK PAIN, ASSISTED TO POSITION ONTO SIDE SUPPORTED WITH PILLOW, WILL CONT TO MONITOR.
--- NOTE | 2016-12-21 22:30 | NUR ---
PT REORIENTED TO TIME AND PLACE, PT TIED OXYGEN TUBING IN KNOT AROUND PULSE OX, EXPLAINED TO PT HE MUST NOT MESS WITH EQUIPMENT, ENCOURAGED PT TO ATTEMPT TO SLEEP
--- NOTE | 2016-12-21 23:05 | NUR ---
PT REMAINS CONFUSED TO SITUATION ATTEMPTS TO REORIENT UNSUCCESSFUL, RIGHT GROIN DRSG CDI, RIGHT UPPER LEG TENDER, LEG AND FOOT WARM TO TOUCH, PULSES BY DOPPLER, PT REQUESTING SOMETHING TO DRINK, ICE WATER PROVIDED.
[2016-12-22] VITALS (52 sets, daily range): BP systolic 107–179; BP diastolic 42–80
--- NOTE | 2016-12-22 01:00 | NUR ---
PT REPOSITIONED UP IN BED, COMPLAINS OF LEG AND BACK PAIN, REMINDED PT TO USE DEMEROL COMPUTER OPERATIONS MANAGER NEEDED, PT HALLUCINATING AT TIMES, ATTEMPTING TO WEAN CLEVIPREX TOLERATED
--- NOTE | 2016-12-22 03:00 | NUR ---
REASSESSMENT COMPLETED, PT REMAINS CONFUSED, REPOSITIONED PT ONTO LEFT SIDE SUPPORTED WITH PILLOWS, ATTEMPTED TO BRIDGE HEELS, BUT PT REMOVES PILLOW EACH TIME, VSS.
--- NOTE | 2016-12-22 04:15 | NUR ---
RADIOLOGY @ BS FOR AM CXR
--- NOTE | 2016-12-22 04:40 | NUR ---
PT THROWING LEFT LEG OOB STATES " I NEED MY SHOES AND SOCKS AND YOU CAN CALL A CAB", EXPLAINED PT HE WAS IN THE HOSPITAL, STATES "NO I DON'T THINK SO", REMINDED PT OF SURGERY YESTERDAY, PT REQUESTING SOMETHING TO DRINK, PEPSI PROVIDED ON REQUEST, ROUTINE MEDS GIVEN AND 25MG BENADRYL GIVEN SLOW IVP FOR ITCHING.
--- NOTE | 2016-12-22 06:00 | NUR ---
PT RESTING QUIETLY IN BED, APPEARS MORE COMFORTABLE, PT DENIES NEEDS, INQUIRING ABOUT WHEN THE DOCTOR WILL BE HERE, CONTINUES TO PULL AT LINES AND EQUIPMENT REQUIRES FREQUENT REDIRECTION.
[2016-12-22 07:36] LABS: ALBUMIN 2.1 g/dL (3.4-5.0); ALKALINE PHOSPHATASE 89 U/L (46-116); ALT (SGPT) 15 U/L (10-68); CALC OSMOLALITY 275 mosm/kg (275-300); CALCIUM 7.3 mg/dL (8.5-10.1); CHLORIDE - SERUM 102 mmol/L (98-107); CREATININE - SERUM 0.5 mg/dL (0.6-1.3); GLUCOSE 115 mg/dL (74-106); POTASSIUM - SERUM 3.1 mmol/L (3.5-5.1); PROTEIN - SERUM 5.1 g/dL (6.4-8.2); SODIUM 139 mmol/L (136-145); eGFR NON AFRICAN AMERICAN > 90 mL/min (90-120)
[2016-12-22 07:40] LABS: HEMATOCRIT 28.5 % (42.0-54.0); HEMOGLOBIN 9.6 g/dL (13.5-17.5); MCH 28.4 pg (26.0-34.0); MCHC 33.7 g/dL (31.0-37.0); MCV 84.3 fL (80.0-100.0); MEAN PLATELET VOLUME 10.4 fL (7.4-10.4); RBC 3.38 10x6/uL (4.20-6.10); RDW 14.8 % (11.5-14.5); WBC 8.6 10x3/uL (4.8-10.8)
--- NOTE | 2016-12-22 07:43 | NUR ---
SHIFT ASSESSMENT COMPLETE. PT ALERT AND CONVERSANT AND ORIENTED TO SELF AND PLACE, YET IS SEEING "WATER AND FIRE ON THE FLOOR," HE POINTS TO THE CEILING. HE IS PULLING AT HIS LINES AND GOWN AND TRYING TO REMOVE HIS WRIST GUARD AT THE RADIAL ART SITE. HAVE ATTEMPTED TO EXPLAIN WHY HE CANNOT PULL ON HIS LINES OR TURN THE VALVES. EXPORT COORDINATOR REPORT GIVEN WAS THAT HE HAS NOT SLEPT BUT A FEW MOMENTS AT A TIME OVER THE LAST TWO NIGHTS. PT STATES HE JUST CANNOT SLEEP. ATTEMPTS TO GET OUT OF BED SAYING HE WANTS TO GO HOME AND THAT HIS HAS TAKEN CARE OF HIM FOR 20 YEARS AND SHE IS CAPABLE OF TAKING CARE OF HIM NOW, HE DOESN'T NEED TO BE HERE. TURNED ON THE LIGHT IN HIS ROOM AND TURNED ON TELEVISION FOR HOPEFUL DISTRACTION OF ATTENTION. REFUSES BREAKFAST TRAY. SAYS HAS NOT HAD APPETITE FOR PAST TWO WEEKS.
--- NOTE | 2016-12-22 07:59 | NUR ---
DR DUCKWORTH IN TO SEE PATIENT. DECREASE FLUIDS TO 30 ML/HR. WEAN CLEVIPREX. D/C ART LINE AND CALDERON. UP TO CHAIR AND PHYSICAL THERAPY.
[2016-12-22 08:03] LABS: UREA NITROGEN 4 mg/dL (7-18)
--- NOTE | 2016-12-22 08:41 | NUR ---
CALDERON CATHETER HAS BEEN REMOVED, TIP INTACT. LEFT RADIAL ART LINE REMOVED, TIP INTACT. SITE COVERED WITH GAUZE AND CLEAR DRESSING.
--- NOTE | 2016-12-22 09:22 | NUR ---
AND SISTER IN LAW AT BEDSIDE. PT WANTING TO GO HOME. ALSO ASKING ABOUT GETTING SOME CRUTCHES, SAYS SOME LADY YESTERDAY TOLD HIM HE WOULD BE GETTING SOME CRUTCHES. LET KNOW THAT HE HAS A PHYSICAL THERAPY CONSULT AND IF IT IS DETERMINED HE NEEDS SOME WE WILL MAKE SURE HE GETS THEM.
--- NOTE | 2016-12-22 10:35 | NUR ---
PT UP IN CHAIR AT THIS TIME. URINAL EMPTIED OF 300ML CONCENTRATED URINE.
--- NOTE | 2016-12-22 11:44 | NUR ---
Pt sitting up in chair at bedside watching television. vss. Lunch tray taken in to room. Pt shook his head back and forth saying "I don't want it." Asked him if he wanted to at least take a look at to see if it looked good, he said "I'm just not hungry." Refuses to have it in his room.
--- NOTE | 2016-12-22 11:50 | NUR ---
PT HAS NOT USED MEDICAL RESEARCH ASSISTANT DEMEROL FOR SOME TIME, MENTATION MUCH IMPROVED. NO VISUAL HALLUCINATIONS NOTED. PT NO LONGER PULLING/PICKING AT LINES OR EQUIPMENT.
--- NOTE | 2016-12-22 12:05 | NUR ---
Family at bedside for noon visitation.
--- NOTE | 2016-12-22 12:58 | NUR ---
Pt up walking with physical therapy.
--- NOTE | 2016-12-22 13:15 | NUR ---
Sahara Pierre by to check on patient. He told her he wanted to leave. She explained to him that he would need to stay through to Sunday for his IV antibiotics. Let her know pt had not used his PERFUME MAKER since start of shift. Demerol was discontinued and oral pain medications ordered.
--- NOTE | 2016-12-22 14:02 | NUR ---
Pt requested to go back to the bed, c/o being cold. No longer wanted to sit in chair.
--- NOTE | 2016-12-22 15:10 | NUR ---
Family at bedside for visitation. Daughter has brought Roque happy meal in hopes that he will eat something. Pt still trying to figure out a way to be able to be discharged. Explained to him and , daughter, and sister in law that it will be sometime on Sunday before he can discharge. Family also asked for a nicotine patch. Cannot have patch due to causing vasoconstriction and will potentially undo all work just done to open his blood flow.
--- NOTE | 2016-12-22 17:28 | NUR ---
Pt resting in bed. Refuses dinner tray. Did not eat happy meal daughter brought. Says he is afraid it will come back up; just has no appetite.
--- NOTE | 2016-12-22 19:15 | NUR ---
MOVED PATIENT FROM ROOM CV02 TO CV06 FOR BETTER VISIBILITY TO NURSING STAFF DUE TO PERIODS OF HALLUCINATIONS/CONFUSION.
--- NOTE | 2016-12-22 20:25 | NUR ---
2100 MEDS GIVEN. B/P ELEVATED AT THIS TIME.
--- NOTE | 2016-12-22 22:10 | NUR ---
DR. DUCKWORTH MADE AWARE OF B/P. ORDERS TO KEEP SBP <160.
--- NOTE | 2016-12-22 22:47 | NUR ---
PRN PAIN MEDS GIVEN FOR LEG PAIN.
[2016-12-23] VITALS (20 sets, daily range): BP systolic 115–177; BP diastolic 44–73
--- NOTE | 2016-12-23 00:15 | NUR ---
R.T. AT BEDSIDE TO GIVE INHALER. REASSESSMENT COMPLETED. SEE ASSESSMENT FLOWSHEET. NO NEW ACUTE CHANGES NOTED. WILL MONITOR.
--- NOTE | 2016-12-23 01:20 | NUR ---
LOOKING IN COVERS FOR HIS ARMBAND. ASKED ABOUT WHICH ARMBAND. WAS LOOKING FOR B/P CUFF THAT WAS ON HIM. COVERED BACK UP. WILL MONITOR.
--- NOTE | 2016-12-23 02:00 | NUR ---
TURNING OVER ON HIS SIDE. REPORTS HE CAN NOT SLEEP. DENIES ANYTHING I COULD DO TO HELP HIM SLEEP. DOES NOT WANT TV OFF. WILL MONITOR.
--- NOTE | 2016-12-23 02:55 | NUR ---
BED ALARMING SOUNDING. SITTING UP ON SIDE OF BED. STATING "I NEED THE BATHROOM" WHEN ASKED WHERE HE WAS GOING. INFORMED OF BEING CONNECTED TO MULTIPLE WIRES TO CALL WITH ASSISTANCE. SAT ON SIDE OF BED AND URINATED 350 ML OF MACIE COLORED URINE. AMBULATED TO SINK TO WASH HANDS. BACK TO BED. RECONNECTED TO MONITORING EQUIPMENT. RICKY DRAIN EMPTIED FROM RT THIGH AREA. RICKY DRAIN SITE DRSG REMOVED, CLEANSED WITH BETADINE SOLUTION AND APPLIED 4X4'S AND TEGADERM. DENIES TO HAVE A BATH. BETADINE FROM SURGERY STILL NOTED TO RT LEG.REASSESSMENT COMPLETED. SEE ASSESSMENT FLOWSHEET. WILL MONITOR. BED ALARM TURNED BACK ON.
--- NOTE | 2016-12-23 04:00 | NUR ---
TURNED SELF TO THE RIGHT SIDE. WILL MONITOR.
--- NOTE | 2016-12-23 05:20 | NUR ---
WHEN DRAWING AM LABS VIA LEFT SC CVL WAS TOLD HE JUST CAN NOT SLEEP. REPORTED HE TAKES NYQUIL AND BENADRYL AT HOME EVERY NIGHT TO SLEEP. ALSO REPORTS HE FEELS HE IS STARTED TO HAVE DEPRESSION AND HE HAD BEEN BATTLING HIS LEG ISSUE FOR A WHILE BEFORE HAVING SURGERY. IV ATIVAN FOR ANXIETY GIVEN ALONG WITH PAIN MEDS FOR RT LEG INCISIONAL ACHING. WILL MONITOR.
[2016-12-23 05:23] LABS: HEMATOCRIT 27.1 % (42.0-54.0); HEMOGLOBIN 8.9 g/dL (13.5-17.5); MCH 28.2 pg (26.0-34.0); MCHC 32.8 g/dL (31.0-37.0); MCV 85.8 fL (80.0-100.0); RBC 3.16 10x6/uL (4.20-6.10); RDW 14.5 % (11.5-14.5); WBC 7.6 10x3/uL (4.8-10.8)
--- NOTE | 2016-12-23 05:45 | NUR ---
ATTEMPTING TO CLIMB OUT OF THE BED WITH SIDE RAILS UP. STATES "I NEED TO BE OVER THERE IN MY BED" HE WAS POINTING AT THE WINDOW. REORIENTED. REPOSITIONED UP IN BED. TRYING TO PULL AT B/P CUFF LINE ETC. INFORMED PATIENT HE PROBABLY SHOULD NEVER TAKE THE ATIVAN AGAIN. LAUGHED ABOUT IT. ENCOURAGED TO CALL FELT MACHINE MECHANIC LIGHT WITH NEEDS. BED ALARM TURNED BACK ON.
--- NOTE | 2016-12-23 06:35 | NUR ---
PLACED O2 SENSOR BACK ONTO FINGER. WATCHING THE NEWS. COVERS ALL BUNCHED UP. ASKED WHAT WAS HE TRYING TO DO. REPORTS "GETTING READY FOR THE RACE". WHEN ASKED WHAT RACE, STATES "THE ONE EVERYONE IS TALKING ABOUT". INFORMED HIM THEY WERE TALKING ABOUT THE Pollen. HE THEN SAID "I DON'T THINK I'LL BE IN THAT ONE". DENIES NEEDS. WILL MONITOR.
--- NOTE | 2016-12-23 13:06 | OP ---
PATIENT NAME: VJ BUSTAMANTE MEDICAL RECORD: [id number] :49 [facility] D.CV06 ADMISSION DATE:12/19/16 SURGEON: DEREK DUCKWORTH MD DATE OF OPERATION: 12/21/2016 SURGEON: Derek Duckworth MD. ANESTHESIA: General, Dr. Ruiz. OPERATION PERFORMED: 1. Aortogram. 2. Right iliac artery arteriogram. 3. Right retrograde common femoral artery arteriogram. 4. Exchanged 6-English short for 6-English long sheath. 5. Angioplasty of the right external iliac artery. 6. Stent 8 x 60 right external iliac artery and proximal common femoral artery. 7. Right common femoral artery, right superficial femoral artery and right profunda endarterectomy with patch angioplasty. 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 INDICATION FOR OPERATION: The patient had 24 hours of thrombolysis and is taken back a second look and repair of right femoral artery and possible fem-fem bypass. FINDINGS OF THE OPERATION: Fluoro time was 4 minutes 34 seconds, contrast was 85 mL. The stent was a Smart stent 8 x 60. The CorMatrix patch was lot number [id number]. ESTIMATED BLOOD LOSS: Less than 150 mL. DESCRIPTION OF PROCEDURE: After informed consent, adequate preoperative medication and evaluation, the patient was brought to the operating room, placed on the table in the supine position. After induction of general endotracheal anesthesia and application of appropriate monitoring devices, the dressing was removed from the right leg and the catheters and skin prepped and draped in a sterile field utilizing ChloraPrep. Sterile dressings were applied. The Cragg-Joselo catheter was removed over a wire and a pigtail catheter placed into the aorta. Aortogram demonstrated good flow into both limbs of the endovascular stent with no obstruction. The catheter was then moved into the iliac limb on the right. Arteriogram demonstrated good flow to the groin. The arteriogram was then made of the right groin, exchange was made for a 6-English and a retrograde arteriogram demonstrated freely movable clot in the distal external iliac artery and proximal superficial femoral artery; however, it was non occlusive, but due to its mobile nature, underwent angioplasty with a 6 x 60 balloon with little change. Therefore, an 8 x 60 stent was placed with an excellent result and good flow through the graft through the external iliac into the common femoral artery with distal common femoral artery stenosis at the takeoff of the superficial femoral artery and profunda femoral artery. The field was then taken down after exchange of the sheath and the leg and abdomen were reprepped and draped in a sterile field utilizing ChloraPrep. Sterile OPERATIVE REPORT [id number] VJ BUSTAMANTE dressings were applied. A new surgical setup was used. An incision was made above the sheath and dissection was carried down to the artery following the sheath. Dissection was then made around the sheath. The sheath was removed and the artery repaired with 6-0 Prolene suture. The common femoral, superficial and profunda femoral arteries were then dissected free of surrounding structures, protecting the neurological and venous structures. The common femoral artery was dissected back and was still soft and below the stent. The profunda and superficial were also surrounded with vessel loops. The patient was given additional amounts of heparin measuring the ACT throughout the procedure. The patient came to the OR with a heparin drip and TPA infusing. The artery was then opened and the superficial femoral artery and dissection carried out into the common femoral artery and arteriotomy extended with Leon scissors onto the common femoral artery. The distal end of the incision was carried down to the superficial femoral artery for approximately 4 cm. The endarterectomy was performed sharply. Artery underwent extensive debridement and irrigation. Utilizing a vascular patch, a running 6-0 Prolene suture, the arteriotomy was closed with a patch angioplasty technique. All maneuvers to remove trapped air were performed. The clamps were removed sequentially. There was excellent flow through the profunda and superficial femoral arteries. The heparin was not reversed and hemostasis was achieved. The areola tissue was closed over the artery and a #10 Bill-Abarca drain left in the depths of the wound. Superficial layers were closed with interrupted 2-0 Vicryl and skin approximated with skin leslie. Sterile dressings were applied. The patient tolerated the procedure well and was transferred to the CV ICU in satisfactory condition. TRANSINT:[id number] Voice Confirmation ID: [id number] DOCUMENT ID: [id number] DEREK DUCKWORTH MD at 1306 CC: [id number] DICTATION DATE: 12/21/161705 WATER SANDER: 12/22/16 0155 ADM IN [facility] [address] [facility] [place] [address]
--- NOTE | 2016-12-23 13:06 | OP ---
PATIENT NAME: VJ BUSTAMANTE MEDICAL RECORD: [id number] :49 LOCATION:[facility] D.CV06 ADMISSION DATE:12/19/16 SURGEON: DEREK ESPINOZA MD DATE OF OPERATION: 12/20/2016 SURGEON: Derek Espinoza MD ANESTHESIA: General, Dr. Pappas. OPERATION PERFORMED: 1. Right femoral artery arteriogram. 2. Aortogram. 3. Thrombolysis TPA. PREOPERATIVE DIAGNOSES: Clotted endovascular stent and right external iliac artery. POSTOPERATIVE DIAGNOSIS: Clotted endovascular stent and right external iliac artery. INDICATION FOR OPERATION: Ischemic right leg. FINDINGS OF THE OPERATION: The superficial femoral takeoff on the right is stenotic. The right external iliac artery is occluded. The right limb of the endovascular stent graft has also occluded. Contrast is 44 mL. Fluoroscopy time is 7 minutes. ESTIMATED BLOOD LOSS: Less than 5 cc. DESCRIPTION OF PROCEDURE: 1. Localization of the common femoral artery. 2. Right retrograde common femoral artery arteriogram demonstrates total occlusion of the iliac artery with clot in the common femoral artery as well as severe stenosis takeoff of the right superficial femoral artery and common femoral artery disease. 3. Aortogram demonstrates an open endovascular stent proximal portion with flow into the ipsilateral side to the left and total occlusion of the right limb. Placement of the catheter at the flow divider in the endovascular stent extending into the right external iliac artery and distal femoral sheath. The patient was given 5 mg of TPA as a bolus and started on a TPA drip. The sheath was flushed with heparin 1000 units per 500 cc at 20 cc an hour. DESCRIPTION OF PROCEDURE: After informed consent and adequate preoperative medication evaluation, the patient was brought to the operating room, placed on the table in the supine position. After induction of general endotracheal anesthesia and application of appropriate monitoring devices, the abdomen and groins were prepped and draped in a sterile field, utilizing Betadine scrub, alcohol, and Betadine solution. A Betadine-impregnated drape was also used. Ultrasound was required for cannulation of the common femoral artery, which was difficult due to the occlusion proximally and disease in the common femoral OPERATIVE REPORT [id number] VJ BUSTAMANTE artery. Utilizing ultrasound guidance, an 0.018 wire was placed into the right limb of the graft and exchange made for a 4-Anguillan. The 4-Anguillan sheath was placed and a Glidewire manipulated into the aorta. A retrograde arteriogram demonstrated the severe stenosis takeoff of the superficial femoral artery, diffuse disease in the common femoral artery and probable clot and total occlusion of the right iliac vessels. A exchange was made with an 0.035 Quick-Cross and aortogram performed that demonstrated the above findings. A wire was then placed into the descending aorta and a Cragg-Joselo catheter was placed from the flow divider into the distal portion of the 6-Anguillan sheath. Heparin flush was connected through the sheath and the Cragg-Joselo catheter was infused with a bolus of 5 mg TPA and started on a drip of 0.18 mg per mL at 12 mL per hour. Sterile dressings were applied. The patient was given 5000 units of heparin at the beginning of the case. This was not reversed and he was placed on a drip at 700 units per hour. The patient was then transferred to the ICU in satisfactory condition. TRANSINT:[id number] Voice Confirmation ID: [id number] DOCUMENT ID: [id number] DEREK ESPINOZA MD at 1306 CC: [id number] DICTATION DATE: 12/20/16 1137 PLANER SETUP OPERATOR: 12/20/16 1535 ADM IN [facility] [address] [id number]
--- NOTE | 2016-12-23 13:06 | HP ---
PATIENT: VJ BUSTAMANTE MEDICAL RECORD: [id number] ACCOUNT: [id number] LOCATION:[facility] D.CV06 : 49 ADMISSION DATE: 12/19/16 HISTORY AND PHYSICAL EXAMINATION REASON FOR ADMISSION: Right leg pain and right iliac artery occlusion. HISTORY OF PRESENT ILLNESS: Mr. Bustamante is a gentleman who underwent endovascular stent repair of his abdominal aortic aneurysm and right common iliac artery aneurysm with embolization of his right hypogastric with extension of his graft into his external iliac artery. Postoperatively, he did well. He has been seen in the clinic approximately 2 weeks ago. He has had progressive pain and weakness in his right lower extremity to the point that he is not able to perform his daily activities. He was seen at [facility] and his workup included Doppler ultrasound of his lower extremity and a CT angiogram. The CT angiogram demonstrates occlusion of the right limb of his graft. He was accepted in transfer to [facility] for further treatment. PAST MEDICAL HISTORY: Endovascular stent repair of his abdominal and right iliac artery aneurysm, environmental allergies, chronic cephalgia, coronary artery disease, colon polyps, tobacco abuse, hernia repair, orthopedic knee scopes and colonoscopy with polyp removal. HABITS: Current everyday smoker, a pack a day for over 40 years. SOCIAL HISTORY: Alcohol, no illicit drugs. FAMILY HISTORY: Positive for atherosclerotic cardiovascular disease. CURRENT MEDICATIONS: Heparin drip, acetaminophen with codeine, metoprolol XL 100 mg daily, Stadol spray 10 mg per mL p.r.n., Cardura 4 mg daily, Zyrtec 10 mg daily, simvastatin 80 mg daily, Protonix 40 mg daily, Flonase ___ spray b.i.d., aspirin 81 mg a day and Combivent 18-103 mcg 2 puffs every 6 hours. ALLERGIES: FLU VIRUS VACCINE AND CHANTIX. REVIEW OF SYSTEMS: Negative except as mentioned in the history of present illness. PHYSICAL EXAMINATION: GENERAL: A well-developed and well-nourished male in no acute distress. SKIN: Warm and dry. HEAD: Normocephalic. EYES: Pupils are equal, round, reactive to light and accommodation. Extraocular muscles are intact. ENT: Moist pink buccal mucosa. NECK: Supple, nontender, without abnormal mass or thyromegaly. No jugular venous distention. No carotid bruits. CHEST: Normal AP diameter. LUNGS: Clear hyperresonant to percussion. HEART: In a regular rhythm without any murmur, rub or, gallop. ABDOMEN: Soft, nontender. No abnormal mass or organomegaly. Bowel sounds are active. GENITOURINARY: Deferred. HISTORY AND PHYSICAL [id number] DIANNAVJ Del Castillo MARÍA: Deferred. EXTREMITIES: Well-healed bilateral incisions above the inguinal ligament. There are no palpable pulses on the right femoral or below. Has good femoral pulses and pedal pulses on the left. NEUROLOGICAL: Mental status normal. Cranial nerves II through XII normal. Motor normal. Sensory normal. Good sensation in the right lower extremity, specifically. IMPRESSION: 1. Occlusion of the right iliac artery and graft. 2. History of coronary artery disease. 3. Right iliac artery aneurysm status post EVS repair, status post right common iliac artery repair with endovascular stent. After examining the patient, reviewing his history and physical and CT scan, I think that he would benefit from arteriogram and intervention on the right iliac artery. I have discussed his disease process with him in detail as well as the alternative methods of treatment. We discussed endovascular as well as open procedures including the expected benefits and risks, which include bleeding, infection, stroke and . He understands all the above and wished to proceed with planned procedure. TRANSINT:[id number] Voice Confirmation ID: [id number] DOCUMENT ID: [id number] JACOB DUCKWORTH MD at 1306 CC: [id number] DICTATION DATE: 12/19/16 1746 HYPERTRICHOLOGIST: 12/19/16 2018 ADM IN [place] [id number] [place] [id number]
--- NOTE | 2016-12-23 19:10 | NUR ---
BED ALARM ALARMING. SITTING UP IN BED ATTEMPTING TO GET UP WITH SIDE RAIL UP. REPORTING HE NEEDED THE BATHROOM. ASSISTED WITH OBTAINING THE URINAL. CLEAR, MACIE URINE NOTED. BACK IN BED WITH ASSIST. SHIFT ASSESSMENT COMPLETED. SEE ASSESSMENT FLOWSHEET. WILL MONITOR.
--- NOTE | 2016-12-23 19:57 | NUR ---
HOLLERING OUT "IT IS GOING TO GET HOT IN HERE, YALL WANT THE A/C ON?". EXPLAINED THE ELECTRICITY IS OUT AND BACK UP GENERATORS ARE IN USE. FAN IN ROOM TURNED ON AFTER ASKING IF HE WAS WARM. WILL MONITOR.
--- NOTE | 2016-12-23 20:36 | NUR ---
2100 MEDS GIVEN. SWALLOWED WITHOUT DIFFICULTY. CONFUSED. REORIENTED TO PLACE AND SITUATION.
--- NOTE | 2016-12-23 22:05 | NUR ---
C/O HEADACHE. ASKING FOR STADOL. GAVE PER REQUEST.
--- NOTE | 2016-12-23 22:53 | NUR ---
TRYING TO GET OOB. STATES "I'M GOING IN THE LIVING ROOM". REORIENTED. AMBULATED TO GET UP TO THE TOP OF THE BED TO LAY BACK DOWN. WILL MONITOR.
--- NOTE | 2016-12-23 23:35 | NUR ---
TRYING TO GET UP OUT OF BED. WHEN ASKED "I'VE GOT TO MOVE OVER SO HE CAN GET IN HERE". HAVING VISUAL HALLUCINATION. HAD HIS RT HAND ON HIS IV LINES. INFORMED TO NOT TOUCH ANY LINES/WIRES ON HIM AND EXPLAINED THE REASON. LAID BACK DOWN AND ENCOURAGED REST.
[2016-12-24] VITALS (26 sets, daily range): BP systolic 102–192; BP diastolic 47–84
--- NOTE | 2016-12-24 01:30 | NUR ---
CONSTANTLY TRYING TO SIT UP AND GET OOB. REORIENTED. WILL MONITOR.
--- NOTE | 2016-12-24 02:20 | NUR ---
TALKING ABOUT GETTING HIS TRUCK AND GETTING OUT OF HERE. INFORMED OF PLAN OF CARE.
--- NOTE | 2016-12-24 03:10 | NUR ---
REASSESSMENT COMPLETED. SEE ASSESSMENT. I & O'S COMPLETED. ONCE WALKED OUT OF ROOM, BED ALARM GOING OFF. STANDING UP TO URINATE. BACK TO BED, WILL MONITOR.
--- NOTE | 2016-12-24 04:00 | NUR ---
ASKING WHEN ARE WE LEAVING TO GO TO THE DENTIST. REORIENTED
--- NOTE | 2016-12-24 04:34 | NUR ---
BED ALARM ALARMING. OFF TELEMETRY. UPON ENTERING STATES "I'VE HAD IT, I'M LEAVING". 3-WAY INFUSION PIGGYTAIL PORT HAD BEEN TORN APART. IV FLUIDS LEAKING IN BED. BLOOD BACKING UP FROM LEFT SC CVL. BELIGERENT. DISORIENTED TO PLACE, TIME AND SITUATION. REORIENTED IN A CALM FASHION TO NOT PROVOKE THE ALREADY RESISTANT MAN HOLDING ONTO EKG CORDS ETC. EASED HIMSELF BACK INTO BED AFTER MULTIPLE TIMES ASKING HIM TO DO SO. STILL CONFUSED. RESTRAINTS PLACED TO BILATERAL UE'S. CHARGE NURSE AT BEDSIDE DUE TO HIS RESISTANCE SHOUTING FOR THE POLICE. REPORTING WE ARE KEEPING HIM PRISONER. REORIENTED. LEFT CVL INTACT AND RECONNECTED IV INFUSIONS. DR. DUCKWORTH CALLED AND NEW ORDERS RECEIVED. WILL CALL FAMILY TO INFORM AT 0600 IF NOT AT BEDSIDE THEN. WILL CONTINUE TO MONITOR CLOSELY. BED ALARM IN USE.
--- NOTE | 2016-12-24 05:05 | NUR ---
AM LABS DRAWN WITHOUT DIFFICULTY TO FROM LEFT SC CVL. IV HALDOL AND PROTONIX GIVEN PREVIOUS TO DRAW WITH FLUSHES IN BETWEEN. REPORTS "THIS WOULD NOT HAVE HAPPENED IF YOU WOULD NOT HAVE TREATED ME LIKE A 5 YEAR OLD WHEN I NEEDED TO PEE". EXPLAINED THE REASON TO CALL LAP HAND TOOL LIGHT BEFORE STANDING UP AND NEVER DID SO AND EXPLAINED HE HAS BEEN CONFUSED AND HALLUCINATING ALL NIGHT. SLOWLY EYES CLOSED AND BREATHING WAS NOT RAPID. RR FROM 39 TO 22. WILL MONITOR.
[2016-12-24 05:26] LABS: HEMATOCRIT 27.5 % (42.0-54.0); HEMOGLOBIN 8.9 g/dL (13.5-17.5); MCH 27.8 pg (26.0-34.0); MCHC 32.4 g/dL (31.0-37.0); MCV 85.9 fL (80.0-100.0); MEAN PLATELET VOLUME 9.8 fL (7.4-10.4); RBC 3.2 10x6/uL (4.20-6.10); RDW 14.2 % (11.5-14.5); WBC 6.6 10x3/uL (4.8-10.8)
--- NOTE | 2016-12-24 05:50 | NUR ---
NEW IV BAG AND TUBING HUNG. EYES CLOSED. RESTING. NO ACUTE DISTRESS NOTED. WILL MONITOR.
--- NOTE | 2016-12-24 06:23 | NUR ---
PHONE CALL TO 'S NUMBER TO INFORM OF CHANGES AND USE OF RESTRAINTS. NO ANSWER. VOICEMAIL LEFT TO CALL THE ICU WHEN ABLE AND IT WAS NOT AN EMERGENCY.
[2016-12-24 07:29] LABS: ALBUMIN 2.3 g/dL (3.4-5.0); ALKALINE PHOSPHATASE 98 U/L (46-116); BILIRUBIN - TOTAL 0.54 mg/dL (0.2-1.3); CALCIUM 7.9 mg/dL (8.5-10.1); CHLORIDE - SERUM 101 mmol/L (98-107); CREATININE - SERUM 0.6 mg/dL (0.6-1.3); GLUCOSE 103 mg/dL (74-106); PROTEIN - SERUM 5.9 g/dL (6.4-8.2); SODIUM 140 mmol/L (136-145); eGFR NON AFRICAN AMERICAN > 90 mL/min (90-120)
[2016-12-24 07:43] LABS: ALT (SGPT) 30 U/L (10-68); CALC OSMOLALITY 277 mosm/kg (275-300); UREA NITROGEN 9 mg/dL (7-18)
--- NOTE | 2016-12-24 19:00 | NUR ---
REPORT RECEIVED AND ASSESSMENT COMPLETED. SEE FLOWSHEET FOR FULL DETAILS. VSS. WILL MONITOR THROUGHOUT SHIFT. ALL PULSES PALPABLE. LEFT PEDAL PULSE WEAK.
--- NOTE | 2016-12-24 21:46 | NUR ---
PT HAS SUSTAINED ELEVATED B/P. DR DUCKWORTH NOTIFIED. NO ORDERS RECEIVED. 2100 MEDS GIVEN. WILL CONTINUE TO MONITOR.
--- NOTE | 2016-12-24 23:00 | NUR ---
REASSESSMENT COMPLETED. SEE FLOWSHEET. PT B/P HAS COME BACK WITHIN NORMAL PARAMETERS. VSS. WILL CONTINUE TO MONITOR
[2016-12-25] VITALS (11 sets, daily range): BP systolic 134–160; BP diastolic 62–82
--- NOTE | 2016-12-25 01:00 | NUR ---
NO CHANGES IN PT STATUS AT THIS TIME. VSS. WILL MONITOR
--- NOTE | 2016-12-25 03:35 | NUR ---
REASSESSMENT COMPLETED. SEE FLOWSHEET FOR FULL DETAILS. NO OTHER CHANGES IN STATUS AT THIS TIME. VSS. WILL MONITOR
--- NOTE | 2016-12-25 05:00 | NUR ---
NO CHANGES IN STATUS AT THIS TIME. VSS WILL CONTINUE TO MONITOR.
[2016-12-25 07:05] LABS: ALBUMIN 2.4 g/dL (3.4-5.0); ALKALINE PHOSPHATASE 102 U/L (46-116); ALT (SGPT) 27 U/L (10-68); CALC OSMOLALITY 281 mosm/kg (275-300); CALCIUM 8.2 mg/dL (8.5-10.1); CARBON DIOXIDE 26.8 mmol/L (21.0-32.0); CHLORIDE - SERUM 102 mmol/L (98-107); CREATININE - SERUM 0.7 mg/dL (0.6-1.3); GLUCOSE 93 mg/dL (74-106); PROTEIN - SERUM 6.2 g/dL (6.4-8.2); SODIUM 142 mmol/L (136-145); UREA NITROGEN 11 mg/dL (7-18); eGFR NON AFRICAN AMERICAN > 90 mL/min (90-120)
[2016-12-25 07:09] LABS: POTASSIUM - SERUM 3.5 mmol/L (3.5-5.1)
--- NOTE | 2016-12-25 07:20 | NUR ---
REPORT RECD PT CARE ASSUMED. PT IS ALERT AND ORIENTED X 4. S1S2 NOTED, SR PER CM. LUNG SOUNDS CLR BILAT. PT HAS DRSG TO RIGHT THIGH. ECCHYMOSIS NOTED, IN STAGES OF HEALING, NO HEMATOMA NOTED. LEG IS WARM AND CMS INTACT. PPP. VSS. WILL MONITOR.
[2016-12-25 07:49] LABS: HEMATOCRIT 28.4 % (42.0-54.0); HEMOGLOBIN 9.1 g/dL (13.5-17.5); MCH 27.6 pg (26.0-34.0); MCV 86.1 fL (80.0-100.0); MEAN PLATELET VOLUME 9.7 fL (7.4-10.4); RBC 3.3 10x6/uL (4.20-6.10); RDW 14.6 % (11.5-14.5)
[2016-12-25] MEDS ORDERED: ELIQUIS5 MG PO (09:20)
[2016-12-25] MEDS ORDERED: HEMOCYTE PLUS C1 CAP PO (09:20)
[2016-12-25] MEDS ORDERED: CECLOR250 MG PO (09:24)
--- NOTE | 2016-12-25 09:30 | NUR ---
NUTRITION MONITORING a& EVAL CHART REVIEWED, PT VISIT. PT REPORTS GOOD INTAKE AHA DIET. WILL CONTINUE TO PROVIDE DIET, MONITOR PO INTAKE. RD FOLLOWING
--- NOTE | 2016-12-25 09:47 | NUR ---
PT RICKY DRAIN AND CVL PULLED AT THIS TIME. INCISION SITES LEFT WITH CLEAN DRESSING INTACT. DISCHARGE INSTRUCTIONS HAVE BEEN REVIEWED WITH PT AT THIS TIME.
== END 2016-12-25 11:15 | disposition home or self-care (01) | DRG 315 ==
LOC: D.MS 17:27 → D.CVICU 17:27
PROVIDERS: ADMIT Internal Medicine Cardiovascular Disease
PROC: B41F1ZZ Fluoroscopy of Right Lower Extremity Arteries using Low Osmolar Contrast (ICD-10-PCS; principal; 2016-12-20 07:30)
PROC: 3E06317 Introduction of Other Thrombolytic into Central Artery, Percutaneous Approach (ICD-10-PCS; principal; 2016-12-20 07:30)
PROC: B4101ZZ Fluoroscopy of Abdominal Aorta using Low Osmolar Contrast (ICD-10-PCS; principal; 2016-12-20 07:30)
DX: T82.868A Thrombosis due to vascular prosthetic devices, implants and grafts, initial encounter (principal); I74.5 Embolism and thrombosis of iliac artery; I70.221 Atherosclerosis of native arteries of extremities with rest pain, right leg; I25.10 Atherosclerotic heart disease of native coronary artery without angina pectoris; I10 Essential (primary) hypertension; E78.5 Hyperlipidemia, unspecified; G43.909 Migraine, unspecified, not intractable, without status migrainosus; F17.200 Nicotine dependence, unspecified, uncomplicated

== ENCOUNTER → 2018-02-04 11:00 | Outpatient (CLI) | payer MEDICARE, OTHER ==
[2016-12-21 10:17] VITALS: BMI 23.2
[~2018-02-04 11:00] MED LIST changes: +CECLOR250 MG PO; +ELIQUIS5 MG PO; +HEMOCYTE PLUS C1 CAP PO
== END | disposition home or self-care (01) ==
LOC: D.CT 11:00
DX: I71.4 Abdominal aortic aneurysm, without rupture (principal)

== ENCOUNTER → 2019-07-23 09:24 | Outpatient (CLI) | payer MEDICARE, OTHER ==
[2016-12-21 10:17] VITALS: BMI 23.2
== END | disposition home or self-care (01) ==
LOC: D.CT 09:24
PROVIDERS: ATTEND Internal Medicine Cardiovascular Disease
DX: I71.4 Abdominal aortic aneurysm, without rupture (principal)

== ENCOUNTER → 2019-07-30 09:02 | Outpatient (CLI) | payer MEDICARE, OTHER ==
[2016-12-21 10:17] VITALS: BMI 23.2
== END | disposition home or self-care (01) ==
LOC: D.CT 09:02
PROVIDERS: ATTEND Internal Medicine Cardiovascular Disease
DX: I71.4 Abdominal aortic aneurysm, without rupture (principal)